=== PATIENT | female | born 2000 | race Caucasian/White ===

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

== ENCOUNTER → 2019-09-11 | Outpatient (CLI) | payer OTHER ==
[~2019-09-11] MED LIST changes: +PROTONIX40 MG PO; +ULTRAM50 MG PO
[2019-09-11 12:30] LABS: BASO % 0.5 % (0.0-1.0); EOS # 0.2 10*3/uL (0.0-0.4); HEMATOCRIT 39.8 % (37.0-47.0); HEMOGLOBIN 13.1 g/dl (12.0-16.0); LYMPH # 2.6 10*3/uL (1.3-4.4); LYMPH % 41.2 % (27.0-41.0); MEAN CELL VOLUME 86.9 fl (81.0-99.0); MEAN CORPUSCULAR HGB 28.6 pg (27.0-31.0); MEAN CORPUSCULAR HGB CONC 32.9 g/dl (33.0-37.0); MEAN PLATELET VOLUME 9.7 fl (9.6-12.3); MONO # 0.4 10*3/uL (0.1-1.0); MONO % 6.7 % (3.0-9.0); NEUT # 3.1 10*3/uL (2.3-7.9); NEUT % 48.4 % (47.0-73.0); PLATELET COUNT AUTOMATED 215 10*3/uL (130-400); RED BLOOD COUNT 4.58 10*6/uL (4.10-5.10); RED CELL DISTRI WIDTH 13.2 % (0-14.5); WHITE BLOOD COUNT 6.4 10*3/uL (4.8-10.8)
[2019-09-11 12:41] LABS: URINE AMPHETAMINES < 1000 (1000ng/ml); URINE BARBITURATES < 200 (200ng/ml); URINE BENZODIAZEPINES < 200 (200ng/ml); URINE CANNABINOIDS (THC) > 50 (50ng/ml); URINE COCAINE < 300 (300ng/ml); URINE METHADONE < 300 (300ng/ml); URINE OPIATES < 300 (300ng/ml)
[2019-09-11 12:42] LABS: URINE PHENCYCLIDINE < 25 (25ng/ml)
[2019-09-11 12:53] LABS: ALKALINE PHOSPHATASE 89 U/L (45-117); BUN 10 mg/dl (7-24); CHLORIDE 109 mmol/L (98-107); CHOLESTEROL 94 mg/dL (<200); CREATININE 0.74 mg/dL (0.55-1.02); HDL CHOLESTEROL 45 mg/dl (40-60); LDL CHOLESTEROL 36 mg/dL (9-159); POTASSIUM 3.7 mmol/L (3.5-5.1); SGOT/AST 10 IU/L (3-35); SGPT/ALT 22 U/L (12-78); SODIUM 142 mmol/L (136-145); TOTAL PROTEIN 7.2 gm/dL (6.4-8.2); TRIGLYCERIDES 63 mg/dl (<150); VLDL CHOLESTEROL 13 mg/dL (6-40)
== END | disposition home or self-care (01) ==
LOC: LAB 11:41
PROVIDERS: Registered Nurse Psychiatric/Mental Health
DX: F41.1 Generalized anxiety disorder (principal)

== ENCOUNTER 2019-09-20 13:27 | Emergency (ER) | payer OTHER ==
[~2019-09-20] VITALS: Ht 162.5 cm; Wt 60.8 kg
[~2019-09-20 13:27] MED LIST changes: -PROTONIX40 MG PO
[2019-09-20 14:11] LABS: BASO % 0.3 % (0.0-1.0); EOS # 0.1 10*3/uL (0.0-0.4); EOS % 1.8 % (1.0-4.0); HEMATOCRIT 42.5 % (37.0-47.0); HEMOGLOBIN 13.9 g/dl (12.0-16.0); LYMPH # 2.7 10*3/uL (1.3-4.4); LYMPH % 44.9 % (27.0-41.0); MEAN CELL VOLUME 86.6 fl (81.0-99.0); MEAN CORPUSCULAR HGB 28.3 pg (27.0-31.0); MEAN CORPUSCULAR HGB CONC 32.7 g/dl (33.0-37.0); MEAN PLATELET VOLUME 9.4 fl (9.6-12.3); MONO # 0.3 10*3/uL (0.1-1.0); MONO % 5.5 % (3.0-9.0); NEUT # 2.9 10*3/uL (2.3-7.9); NEUT % 47.3 % (47.0-73.0); PLATELET COUNT AUTOMATED 244 10*3/uL (130-400); RED BLOOD COUNT 4.91 10*6/uL (4.10-5.10); RED CELL DISTRI WIDTH 12.8 % (0-14.5)
[2019-09-20 14:25] LABS: BILIRUBIN 1+ (NEGATIVE); BLOOD 3+ (NEGATIVE); CLARITY CLEAR (CLEAR); COLOR YELLOW (YELLOW); EPITHELIAL CELLS 16-20; GLUCOSE NEGATIVE (NEGATIVE); KETONE NEGATIVE (NEGATIVE); LEUKO ESTERASE NEGATIVE (NEGATIVE); NITRITE NEGATIVE (NEGATIVE); RBC 51-100 rbc/hpf (0-2); UROBILINOGEN 0.2 E.U./dl (0.2-1.0)
[2019-09-20 14:26] LABS: BACTERIA TRACE; MUCOUS 3+
[2019-09-20 14:28] LABS: ALBUMIN 4.3 gm/dl (3.1-4.5); ALKALINE PHOSPHATASE 87 U/L (45-117); BUN 12 mg/dl (7-24); CHLORIDE 110 mmol/L (98-107); CREATININE 0.85 mg/dL (0.55-1.02); LIPASE 99 U/L (73-393); POTASSIUM 3.8 mmol/L (3.5-5.1); SGOT/AST 12 IU/L (3-35); SGPT/ALT 21 U/L (12-78); SODIUM 141 mmol/L (136-145); TOTAL PROTEIN 7.5 gm/dL (6.4-8.2)
[2019-09-20] MEDS ORDERED: PROTONIX40 MG PO (15:00)
== END 2019-09-20 15:05 | disposition home or self-care (01) ==
LOC: ED 13:27
PROVIDERS: Nurse Practitioner Family
DX: K21.9 Gastro-esophageal reflux disease without esophagitis (principal); G43.909 Migraine, unspecified, not intractable, without status migrainosus; F17.200 Nicotine dependence, unspecified, uncomplicated; Z79.899 Other long term (current) drug therapy; Z79.2 Long term (current) use of antibiotics

== ENCOUNTER → 2019-10-07 | Outpatient (CLI) | payer OTHER ==
[~2019-10-07] MED LIST changes: +PROTONIX40 MG PO
== END | disposition home or self-care (01) ==
LOC: US 11:16
DX: K80.20 Calculus of gallbladder without cholecystitis without obstruction (principal); R11.0 Nausea; K82.8 Other specified diseases of gallbladder

== ENCOUNTER → 2019-10-09 | Outpatient (CLI) | payer OTHER ==
[2019-10-09 12:14] LABS: BASO % 0.5 % (0.0-1.0); EOS # 0.1 10*3/uL (0.0-0.4); EOS % 1.7 % (1.0-4.0); HEMATOCRIT 40.9 % (37.0-47.0); HEMOGLOBIN 13.4 g/dl (12.0-16.0); LYMPH # 2.3 10*3/uL (1.3-4.4); LYMPH % 33.9 % (27.0-41.0); MEAN CORPUSCULAR HGB 28.5 pg (27.0-31.0); MEAN CORPUSCULAR HGB CONC 32.8 g/dl (33.0-37.0); MEAN PLATELET VOLUME 9.4 fl (9.6-12.3); MONO # 0.4 10*3/uL (0.1-1.0); NEUT # 3.8 10*3/uL (2.3-7.9); NEUT % 57.6 % (47.0-73.0); PLATELET COUNT AUTOMATED 236 10*3/uL (130-400); WHITE BLOOD COUNT 6.7 10*3/uL (4.8-10.8)
[2019-10-09 12:30] LABS: ACT PARTIAL THROMBO TIME 26.7 SECONDS (20.0-32.1); INTERNATIONAL NORM RATIO 0.9 (2.0-3.5)
[2019-10-09 12:43] LABS: ALBUMIN 4.1 gm/dl (3.1-4.5); ALKALINE PHOSPHATASE 81 U/L (45-117); BILIRUBIN, DIRECT < 0.1 mg/dL (0.0-0.2); BUN 15 mg/dl (7-24); CHLORIDE 109 mmol/L (98-107); CREATININE 0.86 mg/dL (0.55-1.02); POTASSIUM 4.2 mmol/L (3.5-5.1); SGOT/AST 11 IU/L (3-35); SGPT/ALT 17 U/L (12-78); SODIUM 140 mmol/L (136-145); TOTAL PROTEIN 7.4 gm/dL (6.4-8.2)
== END | disposition home or self-care (01) ==
LOC: LAB 11:37
PROVIDERS: Surgery
DX: K80.80 Other cholelithiasis without obstruction (principal)

== ENCOUNTER → 2019-10-15 | Day surgery (SDC) | payer OTHER ==
[~2019-10-15] VITALS: Ht 162.5 cm; Wt 59.4 kg
[2019-10-15 06:45] VITALS: BP 104/75
[2019-10-15 08:54] VITALS: BP 130/78
[2019-10-15 09:09] VITALS: BP 107/53
[2019-10-15 09:24] VITALS: BP 110/58
[2019-10-15 09:39] VITALS: BP 100/46
[2019-10-15 09:55] VITALS: BP 114/65
== END | disposition home or self-care (01) ==
LOC: SDC 10-09 13:15
DX: K80.10 Calculus of gallbladder with chronic cholecystitis without obstruction (principal); F32.9 Major depressive disorder, single episode, unspecified; G43.909 Migraine, unspecified, not intractable, without status migrainosus; K21.9 Gastro-esophageal reflux disease without esophagitis; F17.210 Nicotine dependence, cigarettes, uncomplicated; Z82.49 Family history of ischemic heart disease and other diseases of the circulatory system

== ENCOUNTER → 2020-03-03 | Outpatient (CLI) | payer OTHER | END | disposition home or self-care (01) | LOC: US 13:03 | DX: N93.0 Postcoital and contact bleeding (principal) ==

== ENCOUNTER → 2020-04-04 | Outpatient (CLI) | payer OTHER | END | disposition home or self-care (01) | LOC: US 11:10 | DX: N39.0 Urinary tract infection, site not specified (principal); N85.8 Other specified noninflammatory disorders of uterus ==

== ENCOUNTER → 2020-08-23 | Outpatient (CLI) | payer OTHER | END | disposition home or self-care (01) | LOC: US 08-22 13:30 | PROVIDERS: ATTEND Nurse Practitioner Women's Health | DX: O34.81 Maternal care for other abnormalities of pelvic organs, first trimester (principal); N83.11 Corpus luteum cyst of right ovary; Z3A.10 10 weeks gestation of pregnancy ==